=== PATIENT | male | born 1975 | race Caucasian/White ===

== ENCOUNTER 2020-07-24 17:10 | Emergency (ER) | payer OTHER, SELFPAY ==
[2020-07-24] VITALS (8 sets, daily range): BP systolic 131–155; BP diastolic 88–99; PULSE 98–125; RESP 15–29; TEMP 36.4; O2SAT 94–100
[2020-07-24 17:51] LABS: Basophils Absolute Auto 0.1 K/mm3 (0.0-0.1); Basophils Percent Auto 0.8 % (0.2-1.2); Eosinophils Absolute Auto 0.3 K/mm3 (0-0.3); Eosinophils Percent Auto 3.5 % (0-4.4); Hematocrit 48.3 % (42.0-52.0); Hemoglobin 17.6 g/dL (14.0-18.0); Immature Granulocyte Absolute 0.07 K/mm3 (0.00-0.031); Immature Granulocyte Percent A 0.8 % (0-0.5); Lymphocytes Absolute Auto 3.44 K/mm3 (0.9-3.2); Lymphocytes Percent Auto 38.7 % (18.3-44.2); Mean Corpuscular HGB Conc 36.4 g/dl (32-36); Mean Corpuscular Hemoglobin 30.2 pg (26-34); Mean Corpuscular Volume 82.8 fl (80-100); Mean Platelet Volume 10.5 fl (7.4-10.4); Monocytes Absolute Auto 0.6 K/mm3 (0.1-0.6); Monocytes Percent Auto 6.2 % (2.6-8.5); Neutrophils Absolute Auto 4.5 K/mm3 (1.3-6.7); Platelet Count Result 294 k/mm3 (150-375); Red Blood Count 5.83 M/mm3 (4.6-6.20); White Blood Count 8.9 K/mm3 (4.5-10.0)
[2020-07-24 18:17] LABS: Beta-Hydroxybutyrate/Acetoacetate 0.66 mmol/L (0.02-0.27)
--- NOTE | 2020-07-24 18:18 | PCRCNOTE ---
ABG ORDERED THROUGH REFLEX ORDER. DR BERNARD DOES NOT WANT AT THIS TIME. WILL REORDER ABG IF NEEDED.
[2020-07-24 18:46] LABS: Add Urine Microscopic? YES; Appearance Urine Clear (Clear); Bilirubin Urine Negative (Negative); Blood Urine Negative (Negative); Color Urine Yellow (Yellow); Glucose Urine UA 3+ mg/dL (Negative); Ketones Urine 1+ mg/dL (Negative); Leukocyte Esterase Ur Negative LEU/UL (Negative); Mucus Urine Rare /lpf; Nitrate Urine Negative (Negative); Protein Urine Negative (Negative); RBC Urine 0-2 /hpf (0-2); Specific Grav Ur 1.027 (1.001-1.035); Urobilinogen Urine Negative mg/dL (<2.0); WBC Urine 0-3 /hpf
--- NOTE | 2020-07-24 18:59 | ED.GENADULT ---
HPI - General Adult General Chief complaint: Recheck/Abnormal Lab/Rx <Adeola Ventura MD - Last Filed: 07/27/20 22:03> Stated complaint: sent in because diagnosed with DM. <Adeola Ventura MD - Last Filed: 07/27/20 22:03> Time Seen by Provider: 07/24/20 18:27 <Adeola Ventura MD - Last Filed: 07/27/20 22:03> Source: patient <Adeola Ventura MD - Last Filed: 07/27/20 22:03> History of Present Illness HPI narrative: Patient is a 44 y/o male sent in by PCP for abnormal labs. He state that he had outpatient blood drawn last week. He was told by PCP yesterday that his labs showed diabetes and he was instructed to come to ED for evaluation. He admits that he has been feeling tired and urinating a lot for a long time, perhaps weeks to months. He also has some blurred vision. He denies any chest pain or SOB. He denies any vomiting. <Adeola Ventura MD - Last Filed: 07/27/20 22:03> Related Data Home medications: Home Medications Medication Instructions Recorded Confirmed esomeprazole magnesium 40 mg PO DAILY 07/24/20 indapamide 2.5 mg PO DAILY 07/24/20 metoprolol tartrate 50 mg PO Q12H 07/24/20 <Adeola Ventura MD - Last Filed: 07/27/20 22:03> Allergies/adverse reactions: Allergies Allergy/AdvReac Type Severity Reaction Status Date / Time No Known Allergies Allergy Verified 10/26/16 12:08 <Adeola Ventura MD - Last Filed: 07/27/20 22:03> Review of Systems Constitutional: Constitutional: Denies chills, Reports fatigue, Denies fever(s), Denies headache(s), Reports lethargy and Reports weakness <Adeola Ventura MD - Last Filed: 07/27/20 22:03> Eyes: Eyes: Reports blurry vision <Adeola Ventura MD - Last Filed: 07/27/20 22:03> ENT: Denies headache(s) and Denies neck pain <Adeola Ventura MD - Last Filed: 07/27/20 22:03> Cardiovascular: Cardiovascular: Denies chest pain and Denies dyspnea <Adeola Ventura MD - Last Filed: 07/27/20 22:03> Respiratory: Respiratory: Denies cough and Denies dyspnea <Adeola Ventura MD - Last Filed: 07/27/20 22:03> Gastrointestinal: Gastrointestinal: Denies abdominal pain, Denies diarrhea, Denies nausea and Denies vomiting <Adeola Ventura MD - Last Filed: 07/27/20 22:03> Genitourinary: Genitourinary: Denies hematuria and Denies dysuria <Adeola Ventura MD - Last Filed: 07/27/20 22:03> Musculoskeletal: Musculoskeletal: Denies back pain and Denies neck pain <Adeola Ventura MD - Last Filed: 07/27/20 22:03> Neurologic: Denies headache(s) and Reports weakness <Adeola Ventura MD - Last Filed: 07/27/20 22:03> Exam Const: General: no acute distress and well developed <Adeola Ventura MD - Last Filed: 07/27/20 22:03> Orientation/consciousness: oriented to person, oriented to place, oriented to time and patient oriented x3 <Adeola Ventura MD - Last Filed: 07/27/20 22:03> HENMT: Head: normocephalic <Adeola Ventura MD - Last Filed: 07/27/20 22:03> Ears: external ears normal <Adeola Ventura MD - Last Filed: 07/27/20 22:03> General nose exam: Normal external nose present <Adeola Ventura MD - Last Filed: 07/27/20 22:03> Eyes: General: appearance normal, both eyes and all related structures <Adeola Ventura MD - Last Filed: 07/27/20 22:03> Conjunctivae: conjunctivae normal <Adeola Ventura MD - Last Filed: 07/27/20 22:03> Neck: Neck: normal visual inspection and full ROM <Adeola Ventura MD - Last Filed: 07/27/20 22:03> Chest: Chest palpation & inspection: normal inspection of the chest and no tenderness <Adeola Ventura MD - Last Filed: 07/27/20 22:03> Resp: Effort & Inspection: normal respiratory effort <Adeola Ventura MD - Last Filed: 07/27/20 22:03> Auscultation: clear to auscultation bilaterally <Adeola Ventura MD - Last Filed: 07/27/20 22:03> Cardio: Rate: tachycardic <Adeola Ventura MD - Last Filed: 07/27/20 22:03> Rhythm: regular rhythm <Adeola Ventura MD - Last Filed: 07/27/20 22:03> GI: GI Palp: No abdominal tenderness and Yes Soft to
[2020-07-24] MEDS: SODIUM CHLORIDE 0.9% IV 1,000 ML 999 ML IV CONT ×2 (19:09→22:27)
--- NOTE | 2020-07-24 19:14 | PC.NURSE ---
BEDSIDE REPORT TO [facility]NA[facility] PIRES AT THIS TIME, SHE HAS ASSUMED PT CARE.
[2020-07-24 21:02] LABS: Glucose Point of Care 282 (65-105)
[2020-07-24 21:33] LABS: Alanine Aminotransferase 41 U/L (4-50); Albumin Level 4.4 g/dL (3.5-5.1); Alkaline Phosphatase 93 U/L (38-126); Anion Gap 14 mmol/L (8-16); Aspartate Amino Transferase 36 U/L (17-59); Bilirubin,Total 0.7 mg/dL (0.2-1.3); Blood Urea Nitrogen 20 mg/dL (9-20); Calcium 9.8 mg/dL (8.4-10.2); Carbon Dioxide 23 mmol/L (22-30); Chloride 100 mmol/L (98-107); Estimated CRCL calculation 120 ml/min; Estimated Glomerular Filt Rate > 60; Glucose 282 mg/dL (75-110); Potassium 4.1 mmol/L (3.4-5.0); Sodium 137 mmol/L (137-145)
[2020-07-24] MEDS: glipiZIDE 5 MG TABLET PO (22:26)
[2020-07-25 00:16] VITALS: BP 141/88; PULSE 78; RESP 16; O2SAT 100
== END 2020-07-25 00:17 | disposition home or self-care (01) ==
PROVIDERS: Emergency Medicine; Emergency Provider General Practice; PCP Family Medicine
DX: E11.65 Type 2 diabetes mellitus with hyperglycemia (principal)
CPT/HCPCS: 36415; 80053; 81001; 82010; 83735; 84100; 85025; 96360; 96361; 99283; A9270; J7030

== ENCOUNTER 2021-01-21 10:10 | Emergency (ER) | payer OTHER, SELFPAY ==
--- NOTE | ~2021-01-21 | XR_ITS ---
EXAMINATION: XR elbow RT min 3V DATE: 01/21/2021 11:49 INDICATION: Right elbow pain TECHNIQUE: Anteroposterior, two oblique and lateral views of the right elbow were obtained. COMPARISON: None. FINDINGS: Alignment is normal. No fracture or joint effusion. Joint spaces are normal. Soft tissues a re unremarkable. IMPRESSION: 1. No acute osseous abnormality. Reviewed, dictated and finalized at location B.
[2021-01-21 10:17] VITALS: BP 149/93; PULSE 110; RESP 16; O2SAT 100
[2021-01-21 10:22] VITALS: BP 149/93; PULSE 110; RESP 18; TEMP 36.8; O2SAT 100
--- NOTE | 2021-01-21 13:04 | ED.UPPEXIN ---
HPI - Extremity Injury (Upper) General Chief Complaint: Extremity Injury, Upper Stated Complaint: forearm injury Time Seen by Provider: 01/21/21 10:54 History of Present Illness HPI narrative: Patient is a 45-year-old male who presents ER with pain to the right forearm. Reports he was changing a tire on his car when he picked up the tire he could hear/feel a tearing/popping sensation. Reports he had some mild swelling along the medial elbow that has gone down. He has normal range of motion and normal strength. No numbness or tingling. He also has some soreness along his medial forearm when he pronates. Related Data Home Medications Medication Instructions Recorded Confirmed esomeprazole magnesium 40 mg PO DAILY 07/24/20 indapamide 2.5 mg PO DAILY 07/24/20 metoprolol tartrate 50 mg PO Q12H 07/24/20 vardenafil mg 01/21/21 Allergies Allergy/AdvReac Type Severity Reaction Status Date / Time No Known Allergies Allergy Verified 01/21/21 10:27 Review of Systems Musculoskeletal: Musculoskeletal: Denies arthralgias, Denies joint swelling and Reports muscle cramps Neurologic: Denies focal weakness, Denies numbness and Denies weakness PMFSH Past Medical History Medical History (Updated 01/21/21 @ 13:11 by Kojo Haley MD) Diabetes mellitus type II, uncontrolled H/O: HTN (hypertension) Hx of migraines Rotator cuff (capsule) sprain Surgical History Surgical History (Updated 08/21/20 @ 10:54 by Germaine Tierney) History of appendectomy Family History Family History (Updated 08/21/20 @ 10:56 by Germaine Tierney) Other Alzheimer disease Arthritis Asthma CHF (congestive heart failure), NYHA class I Cerebrovascular accident Diabetes mellitus Heart disease Hypertension Social History Social History (Updated 08/21/20 @ 10:56 by Germaine Tierney) Smoking status: Unknown if ever smoked Alcohol intake: current Exam Narrative: Exam Narrative: GENERAL: Well-appearing, well-nourished, and in no acute distress. HEAD: Normocephalic, atraumatic. EXTREMITIES: Focused exam of the right upper extremity reveals normal range of motion and strength at the right elbow. Mild tenderness over the biceps tendon without swelling. No tenderness of the olecranon or epicondyles. No reproducible tenderness along the forearm. SKIN: Warm, dry, no rash. NEURO: Alert and oriented x3. PSYCH: Normal mood and affect. Course Course Emergency Course: Discussed anti-inflammatory treatment with lifting restriction. Will give PCP and Ortho information. Likely just muscle strain. Biceps tendon certainly not disrupted. Vital Signs Vital signs: Vital Signs Pulse Rate 110 H 01/21/21 10:17 Respiratory Rate 16 01/21/21 10:17 Blood Pressure 149/93 H 01/21/21 10:17 Pulse Oximetry 100 01/21/21 10:17 Temperature 98.2 F 01/21/21 10:22 Pulse Rate 110 H 01/21/21 10:22 Respiratory Rate 18 01/21/21 10:22 Blood Pressure 149/93 H 01/21/21 10:22 Pulse Oximetry 100 01/21/21 10:22 MDM - Extremity Injury (Upper) Imaging Data Radiologist's impression: ITS Impressions Elbow X-Ray 01/21/21 11:51 IMPRESSION: 1. No acute osseous abnormality. Discharge Plan Discharge Clinical Impression: Forearm strain Patient Disposition: Home, Self-Care Condition: Stable Instructions: Muscle Strain (ED), R.I.C.E. Treatment (ED) Additional Instructions: You may have strained your biceps tendon. Apply ice for 20 minutes at a time to help with inflammation. Continue to take anti-inflammatory medication. Refrain from lifting anything heavier than a carton of milk. Is recommended you follow-up with PCP or a orthopedic surgeon for further treatment evaluation especially if your pain is not improving. Return to the ER if you have sudden increased pain in your elbow, you are unable to flex your arm, you have swelling/redness in your arm, or you have chest pain or shortness of
== END 2021-01-21 13:41 | disposition home or self-care (01) ==
PROVIDERS: Emergency Provider Emergency Medicine; PCP Family Medicine
DX: S56.911A Strain of unspecified muscles, fascia and tendons at forearm level, right arm, initial encounter (principal); E11.9 Type 2 diabetes mellitus without complications; I10 Essential (primary) hypertension; Z79.84 Long term (current) use of oral hypoglycemic drugs; X50.0XXA Overexertion from strenuous movement or load, initial encounter
CPT/HCPCS: 73080; 99283

== ENCOUNTER 2025-04-10 10:53 | Emergency (ER) | payer OTHER, SELFPAY ==
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
[2025-04-10 10:57] VITALS: BP 141/101; PULSE 108; RESP 18; TEMP 36.8; O2SAT 99
[2025-04-10 13:41] VITALS: BP 134/85; PULSE 107; TEMP 36.3; O2SAT 98
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
--- NOTE | 2025-04-10 14:20 | PC.NURSE ---
C-Collar applied per EDP order, Dr. Bui.
[2025-04-10] MEDS: methocarbamoL 500 MG TABLET PO (14:25)
[2025-04-10] MEDS: HYDROcodone/acetaminophen (*CRX) 5-325 MG TABLET 1 TAB PO (14:25)
== END 2025-04-10 16:13 | disposition home or self-care (01) ==
LOC: ANHED 16:11
PROVIDERS: Emergency Provider Emergency Medicine; PCP Family Medicine
DX: S16.1XXA Strain of muscle, fascia and tendon at neck level, initial encounter (principal); I10 Essential (primary) hypertension; E11.9 Type 2 diabetes mellitus without complications; V49.9XXA Car occupant (driver) (passenger) injured in unspecified traffic accident, initial encounter
CPT/HCPCS: 70450; 72125; 99284; A9270; L0140

== ENCOUNTER 2025-04-17 08:07 | Emergency (ER) | payer OTHER, SELFPAY ==
[2025-04-17 08:15] VITALS: BP 140/95; PULSE 95; RESP 14; TEMP 36.7; O2SAT 100
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
== END 2025-04-17 08:55 | disposition home or self-care (01) ==
PROVIDERS: Emergency Provider Nurse Practitioner; PCP Family Medicine
DX: L25.9 Unspecified contact dermatitis, unspecified cause (principal); I10 Essential (primary) hypertension; E11.9 Type 2 diabetes mellitus without complications; Z79.84 Long term (current) use of oral hypoglycemic drugs
CPT/HCPCS: 96372; 99213; G0463; J2919

== ENCOUNTER 2025-08-03 09:52 | Emergency (ER) | payer OTHER, SELFPAY ==
--- NOTE | ~2025-08-03 | XR_ITS ---
XR lumbar spine min 4V Indication: LBP radiates to LT leg, twisted wrong 3x days ago Comparison: None Findings: The vertebral heights are intact. No fracture or subluxation. The disc heights are intact. Soft tissues unremarkable Impression: No acute abnormality. Reviewed, dictated and finalized at location P. Impression: No acute abnormality.
[2025-08-03 10:05] VITALS: BP 145/87; PULSE 107; RESP 18; TEMP 36.7; O2SAT 98
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
== END 2025-08-03 11:15 | disposition home or self-care (01) ==
PROVIDERS: Emergency Provider Registered Nurse; PCP Family Medicine
DX: M54.42 Lumbago with sciatica, left side (principal); I10 Essential (primary) hypertension; E11.9 Type 2 diabetes mellitus without complications; Z79.84 Long term (current) use of oral hypoglycemic drugs
CPT/HCPCS: 72110; 99213; G0463